=== PATIENT | female | born 1950 | race Caucasian/White ===

== ENCOUNTER 2019-05-28 05:54 | Day surgery (SDC) ==
--- NOTE | 2019-05-25 09:20 | EKG Report ---
Test Performed on : 05/25/2019 08:58:26 AM Test Reason : PAT Blood Pressure : / mmHG Vent. Rate : 065 BPM Atrial Rate : 065 BPM P-R Int : 186 ms QRS Dur : 094 ms QT Int : 416 ms P-R-T Axes : 068 020 039 degrees QTc Int : 432 ms Normal sinus rhythm. Normal ECG No previous ECGs available Confirmed by Bhanu RINALDI, Josafat Calderon ([id number]) on 05/25/2019 5:31:21 PM
[2019-05-25 09:34] LABS: HEMATOCRIT 34.6 % (37.0-47.0); HEMOGLOBIN 11.6 g/dL (12.0-16.0); MCHC 33.5 g/dL (33-37); MCV 98.3 FL (81-99); MPV 10.2 FL (7.4-10.4); RBC 3.52 XMIL (4.2-5.4); RDW 12.3 % (11.5-14.5); WBC 8.56 X1000 (4.8-10.8)
[2019-05-25 10:30] LABS: CALCIUM 10.6 mg/dL (8.8-10.2); CREATININE 4.2 mg/dL (0.5-0.9); POTASSIUM 4.4 mmol/L (3.5-5.1)
[2019-05-28] MEDS ORDERED: REGLAN ONE (06:41)
[2019-05-28] MEDS ORDERED: KEFZOL 1 GM/D5W 1 GM/50 ML IVPB ONE (06:41)
[2019-05-28] MEDS ORDERED: LR 1,000 ML ONE (06:41)
[2019-05-28] MEDS ORDERED: PEPCID ONE (06:41)
[2019-05-28] MEDS ORDERED: DIPRIVAN 1% ONE (09:45)
[2019-05-28] MEDS ORDERED: XYLOCAINE-MPF 2% ONE (09:46)
[2019-05-28] MEDS ORDERED: ROBINUL ONE ×2 (09:46→11:39)
[2019-05-28] MEDS ORDERED: QUELICIN (DOSE) ONE (09:46)
[2019-05-28] MEDS ORDERED: NS 500 ML ONE (10:04)
[2019-05-28] MEDS ORDERED: MARCAINE 0.25% PF/EPI 1:200,000 ONE (10:04)
[2019-05-28] MEDS ORDERED: DECADRON ONE (10:45)
[2019-05-28] MEDS ORDERED: ZOFRAN ONE (10:45)
[2019-05-28] MEDS ORDERED: OFIRMEV 1000 MG/ISOTONIC SOLN 1,000 MG/100 ML BOTTLE ONE (10:45)
[2019-05-28] MEDS ORDERED: NEOSTIGMINE ONE (11:39)
[2019-05-28] MEDS ORDERED: ZEMURON ONE (11:39)
[2019-05-28] MEDS ORDERED: NORCO-10 ONE (12:36)
[2019-05-28] MEDS ORDERED: DENOSUMAB 60 MG SQ SCH (13:59)
[2019-05-28] MEDS ORDERED: ZOFRAN IV PRN (13:59)
[2019-05-28] MEDS ORDERED: SALINE LOCK IV FLUID XX ONE (13:59)
[2019-05-28] MEDS: NEURONTIN PO SCH ×2 (17:40→19:49)
[2019-05-28 18:11] LABS: URINE SOURCE CLEAN CATCH
[2019-05-28 18:13] LABS: UR EPITHELIAL CELLS <10 /HPF (<10); URINE BACTERIA 1+ /HPF; URINE RBC <10 /HPF (<10); URINE WBC <10 /HPF (<10)
[2019-05-28 18:14] LABS: BILIRUBIN URINE NEGATIVE (NEGATIVE); BLOOD URINE MODERATE (NEGATIVE); COLOR YELLOW; GLUCOSE URINE TRACE mg/dL (NEGATIVE); KETONE URINE NEGATIVE (NEGATIVE); LEUKOCYTES URINE NEGATIVE (NEGATIVE); NITRITE URINE NEGATIVE (NEGATIVE); PROTEIN URINE 300 mg/dL (NEGATIVE); SP GRAVITY URINE 1.014; TURBIDITY URINE CLEAR (CLEAR); UROBILINOGEN URINE NORMAL (NORMAL)
--- NOTE | 2019-05-28 19:31 | OPERATIVE NOTE ---
PROCEDURE DATE: 05/28/2019 PROCEDURE: Laparoscopy; lysis of adhesions; placement of peritoneal dialysis catheter. SURGEON: Denis Keenan MD. MAINTENANCE COORDINATOR: Augie. PREOPERATIVE DIAGNOSIS: Chronic kidney disease 5. POSTOPERATIVE DIAGNOSIS: Chronic kidney disease 5 with multiple intraabdominal adhesions. INDICATIONS FOR PROCEDURE: This is a lady who was told they did not feel that her veins were adequate for AV fistula so she now presents for PD catheter placement. The only problem is she has had a previous laparotomy so I discussed the risks associated with that and the possibility of inadequate open space for PD catheter usage. They understand. DESCRIPTION OF PROCEDURE: Satisfactory general endotracheal anesthesia was achieved. The abdomen prepped and draped in a sterile fashion. We anesthetized the skin in the epigastrium, made an incision, and introduced a 5 trocar Optiview technique. We insufflated through this trocar. We found an open spot. Then under direct visualization, introduced a 5 trocar in the right lower quadrant, another 5 trocar just below the umbilicus. Through these 3 trocars, we were able to lyse adhesions to make an open space just to the right of the midline all the way to the pelvis. I did add an additional trocar in the right upper quadrant for visualization and dissection as well. After nearly an hour of lysis of adhesions, we then introduced or removed the trocar right below the umbilicus, placed a 2-0 Prolene pursestring stitch in the fascia and then introduced the curl catheter through this hole into the abdominal cavity. We avoided the small bowel at this point. After introducing the curl portion into the abdominal cavity, we secured the cuff at the fascial level with a 2-0 Prolene pursestring stitch. We then anesthetized the skin in the right upper quadrant, made an incision and passed the Dolphin nose through the subcutaneous tissue and delivered the catheter into the subcutaneous tunnel positioning the other cuff in the subcutaneous tunnel. We then attached the infusate and infused 500 mL of fluid into the abdominal cavity. It infused easily and drained easily. We added one additional Prolene stitch in the hypogastrium just to the right of the midline in order to secure the catheter there and keep it positioned caudad toward the pelvis. We passed this around the catheter and secured it. The catheter did go around a piece of the small bowel that was attached to the anterior abdominal wall but did not bind it. After the 500 mL was infused, we capped off the PD catheter. We then desufflated and removed our trocars. We placed 3-0 Polysorb in the subcutaneous tissue of the infraumbilical incision and closed the skin of each incision with 4-0 Polysorb subcuticular stitches. Telfa and sterile OpSite were applied to each incision. 4 x 4 placed at the catheter exit site. She tolerated it well, sent to the recovery room in satisfactory condition. cc: Denis Keenan MD
[2019-05-28] MEDS: NORCO-10 PO PRN (19:49)
[2019-05-29 07:25] LABS: BASO# 0.02 X1000 (0.0-0.2); BASO% 0.2 % (0.0-0.8); HEMATOCRIT 31.4 % (37.0-47.0); HEMOGLOBIN 10.2 g/dL (12.0-16.0); LYMPH# 0.81 X1000 (1.2-3.4); LYMPH% 7.1 % (20.5-51.1); MCH 33.1 PG (27-31); MCHC 32.5 g/dL (33-37); MCV 101.9 FL (81-99); MONO# 0.93 X1000 (0.11-0.59); MONO% 8.2 % (1.7-9.3); MPV 10.7 FL (7.4-10.4); NEUT# 9.59 X1000 (1.4-6.5); NEUT% 84.5 % (42.2-75.2); PLT 162 X1000 (130-400); RBC 3.08 XMIL (4.2-5.4); RDW 12.2 % (11.5-14.5); WBC 11.35 X1000 (4.8-10.8)
[2019-05-29 07:39] LABS: CALCIUM 9.2 mg/dL (8.8-10.2); CREATININE 4.3 mg/dL (0.5-0.9); POTASSIUM 5.6 mmol/L (3.5-5.1)
[2019-05-29 07:51] VITALS: BP 142/67
[2019-05-29] MEDS ORDERED: FEMARA PO SCH (09:00)
[2019-05-29] MEDS ORDERED: AVAPRO PO SCH (09:00)
[2019-05-29] MEDS ORDERED: LASIX PO SCH (09:00)
[2019-05-29] MEDS ORDERED: ULORIC PO SCH (09:00)
[2019-05-29] MEDS: NORCO-10 PO PRN (09:33)
[2019-05-29] MEDS: NEURONTIN PO SCH (09:33)
== END 2019-05-29 10:24 | disposition home or self-care (01) ==
LOC: OR 05:54 → 4N 13:53 → INTOOBSV 13:53 → OR 05-29 10:24
PROVIDERS: ATTEND Surgery